=== PATIENT | female | born 1970 | race Caucasian/White ===

== ENCOUNTER → 2018-01-24 13:27 | Outpatient (CLI) | payer OTHER, SELFPAY ==
--- NOTE | 2018-01-24 13:28 | STE_ITS ---
Reason For Study: Atrial Fibrillaton/Atrial Flutter Stress Results Protocol: [facility] Protocol Maximum Predicted HR: 171 bpm Target HR: 145 bpm% Max imum Predicted HR: 96 % DurationHeart Rate Stage (mm:ss) (bpm) BPCom ment Baseline 65 90/62 No Chest Pain [facility] Protocol Stage I 3:00 98 102/62No Chest Pain [facility] Protocol Stage II 3:00 11 8 110/68No Chest Pain [facility] Protocol Stage III 3:00 14 6 128/60No Chest Pain [facility] Protocol Stage IV 3:00 16 2 132/64No Chest Pain [facility] Protocol Stage V 0:15 16 4 / No Chest Pain Recovery 85 104/60 No Chest Pain Stress Duration: 12:15 mm:ss Maximum Stress HR: 164 bpmME TS: 14 Baseline Echocardiogram Findings Stress Echo Wall motion Data Resting WMIntermediate WMStress WM Resting Wall Motion Wall Motion Stress No regional wall motion No regional wall motion abnormalities noted. abnormalities noted. Ejection Fraction 60 %. Ejection Fraction 70 %. Stress Results Normal blood pressure response to exercise. Exercise was stopped due to fatigue. EKG Data Baseline ECG demonstrates normal sinus rhythm with a rate of 63 beats per minute. Normal intervals are noted. The resting blood pressure was 90/60. The patient exercised according to the regular Cl[facility]ton protocol for a total duration of 12 minutes and 15sec. The maximum heart rate attained was 164 beats per minute. This was 95% of maximum predicted heart rate. The patient exercised into stage 5 of the Clifton protocol. During stress, there were no ST or T wave changes noted to suggest ischemia. At peak exercise, upsloping ST changes only were noted, which did not meet the criteria for ischemia. The peak blood pressure was 132/64. No arrhythmias noted. No clinical angina was noted. Interpretation Summary Normal resting LV systolic function. Nonstenotic valves. With stress, the LV size decreased and all segments augmented normally. The LVEF increased from 60% to 70%. Negative for ischemia at 95% of MPHR and at 14.3 METS. Normal stress echo at high workload Ordering Physician: Oswald Duff Referring Physician: Oswald Duff Performed By: Justina Alvarez, REMIGIO, RVT
== END ==
PROVIDERS: Family Provider Family Medicine; PCP Family Medicine; Visit Provider Internal Medicine Cardiovascular Disease
DX: I48.3 Typical atrial flutter (principal)
CPT/HCPCS: 93017; 93350

== ENCOUNTER → 2018-09-12 06:22 | Outpatient (CLI) | payer OTHER, SELFPAY ==
[2018-01-06 14:58] VITALS: BMI 21.9
[2018-09-12 08:35] LABS: ALB/GLOB Ratio 0.9 RATIO (0.9-2.4); AST(SGOT) 14 U/L (15-37); Alanine Aminotransfer ALT/SGPT 16 U/L (13-56); Albumin, Serum 3.3 g/dL (3.2-5.0); Alkaline Phosphatase 52 U/L (45-117); Anion Gap 10 (5-15); BUN 16 mg/dL (7-18); BUN/Creat Ratio 20.4 RATIO (10-20); Chloride 106 mmol/L (98-107); Cholesterol 187 mg/dL (200); Creatinine, Serum 0.78 mg/dL (0.55-1.02); EST Glomerular Filtration Rate 82 mL/min (>60); Est Glom Filt Rate - Afr Amer 100 mL/min (>60); Globulin 3.6 g/dL (2.2-4.2); Glucose 82 mg/dL (74-106); High Density Lipoprotein 47 mg/dL; Potassium 3.4 mmol/L (3.5-5.1); Protein, Total 6.9 g/dL (6.4-8.2); Sodium Level 141 mmol/L (136-145); Thyroid Stim Hormone (TSH) 3.45 uIU/mL (0.358-3.74); Triglycerides 167 mg/dL; Very Low Density Lipoprotein 33 mg/dL (5-40)
--- OUTSIDE RECORDS SUMMARY | 2018-11-05 03:54 | XMS RPT_ITS ---
:1970 Author Organization OHIP Support Name Relationship Address Phone AULHO Unavailable [address] + [facility] [address] MARSHA, JAVIER Unavailable [address] + [place] [phone] AULHO Unavailable [address] + [place] [address] MARSHA, JAVIER Unavailable [address] + [place] [phone] AULHO Unavailable [address] + [place] [address] MARSHA, JAVIER Unavailable [address] + [place] [address] AULHO Unavailable [address] + [place] [address] MARSHA, JAVIER Unavailable [address] + [place] [address] AULHO Unavailable [address] + [place] [address] MARSHA, JAVIER Unavailable [address] + [place] [address] AULHO Unavailable [address] + [place] [address] RICHARDNER, JAVIER Unavailable [address] + [place] [address] AULHO Unavailable [address] + [place] [address] RICHARDNER, JAVIER Unavailable [address] + [place] [address] AULHO Unavailable [address] + [place] [address] MARSHA, JAVIER Unavailable [address] + [place] [address] AULHO Unavailable [address] + [facility] [address] MARSHA JAVIER Unavailable [address] + [place] [address] Care Team Providers Name Role Phone Virginia Gaitan Attending Unavailable Jolliff, Monet Referring Unavailable Marcanthony, Virginia Attending Unavailable Jolliff, Monet Primary Care Unavailable Marcanthony, Virginia Referring Unavailable Omega, Oswald Attending Unavailable Jolliff, Monet Referring Unavailable Omega, Oswald Attending Unavailable Jolliff, Monet Referring Unavailable Omega, Saint Stephens Attending Unavailable Jolliff, Monet Referring Unavailable Jolliff, Monet Primary Care Unavailable Hendrickson, Ilda Attending Unavailable Omega, Oswald Attending Unavailable Jolliff, Monet Primary Care Unavailable Omega, [place] Stephens Referring Unavailable Omega, Oswald Attending Unavailable Gutierrez, Ab Attending Unavailable Gutierrez, Ab Referring Unavailable Jolliff, Monet Primary Care Unavailable PROBLEMS PROBLEMS DATE TYPE CONDITION / CODE ATTENDING STATUS SOURCE 09/27/2018 Unknown Z12.4 - Encounter Noah Gaitan for screening for [facility] / Repository Z12.4(ICD-10) 09/26/2018 Unknown Z01.419 - Encounter Noah Gaitan for gynecological [facility] (general) (routine) Repository without abnormal findings / Z01.419(ICD-10) 01/24/2018 Unknown I48.3 - Typical Omega, Oswald Active [facility] atrial flutter / Community I48.3(ICD-10) Hospital Repository PROCEDURES PROCEDURES No Procedure Records FoundRESULTS RESULTS 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 [place] [address] OFFICE VISIT Date of Service: 09/26/18 MR#: [id number] Acct: [id number] Name: POP LARSON Rep #: [id number] : 1970 Provider: Virginia Gaitan MD Age/Sex: 48/F Location: [facility] [place] [facility] Status: Signed Intake Vital Signs09/26/18 Height 5 ft 6 in 09/26/18 Weight: 143 lb 09/26/18 Body Mass Index (BMI) 23.1 09/26/18 Blood Pressure 96/62 Intake Visit Reasons: ANNUAL Chief Complaint: est annual [employer] Required: No Is patient in pain?: Yes Allergies Penicillins Adverse Reaction (Severe, Verified 09/26/18 14:08) Swelling Medications flecainide 50 mg tablet 50 mg PO BID PRN tab 01/04/18 [History Confirmed 09/26/18] metoprolol tartrate 25 mg tablet 25 mg PO QDAY tab 01/04/18 [History Confirmed 09/26/18] meloxicam 15 mg tablet 15 mg PO QDAY 01/06/18 [History Confirmed 01/06/18] norethindrone 1 mg-ethinyl estradiol 10 mcg (24)-iron 10 mcg(2) tablet 1 tab PO QDAY 01/06/18 [History Confirmed 09/26/18] Is last menstrual period known: Yes Last Menstral Period: 09/15/18 Post menopausal: No Patient : No : No [facility] Medical History Paroxysmal atrial fibrillation (Chronic) Atrial flutter (Chronic) Abnormal electrocardiogram during exercise stress test (Chronic) History of abnormal cervical Pap smear (Acute) History of vertigo (Acute) Surgical History H/O cardiac radiofrequency ablation (Chronic) H/O LEEP (Acute) History of mandibular surgery (Acute) History of tonsillectomy (Acute) Family History Father Hypertension Cancer Hyperlipidemia Social History Smoking Status: Unknown if ever smoked alcohol intake: current details: social substance use type: does not use caffeine: Yes what type of physical activity do you participate in: walking seatbelt use: always do you feel safe at home: Yes additional social history: [employer] Patient works at [employer] Pregancy History 2 Elective abortions Hx Para 1 Spontaneous abortions Past Pregnancies Del. DatName GA/WeeksOutcome Route [facility] Yasmin Del Rio LgAnestheJaniyael LocaProviderFOB e ht en ia tn Unknown [address] Corrine green th - ful n l term HPI ANNUAL: Details: POP BOGNER is a 48 year old who presents for annual exam. some intermittent low stabbing pain. Last PAP: 2017 nl History of abnormal PAP: 2016 leep Last mammogram: ordered History of abnormal mammogram: Colon cancer screening: gen surgery Other preventative health care screenings: pcp dr pearson Female Reproductive History Last Menstral Period: 09/15/18 Cycle Length: 21-35 Bleeding Duration: 4 Questions: Metorrhagia: No, Sexually active: Yes, Dyspareunia: No, PCB: No Menopausal Symptoms: No hot flashes, No night sweats, No weight change, No mood changes, No difficulty concentrating, No sleep problems, No change in libido ROS Const Constitutional: Denies night sweats Cardio Card: Denies chest pain Resp Resp: Denies dyspnea or cough GI GI: Reports as per HPI; denies bloating, abdominal pain, constipation, vomiting or nausea : Denies hot flashes or nipple discharge Skin Skin/Breast: Denies breast pain, breast skin changes, nipple discharge, breast lump or changing lesions Psych Psych: Denies difficulty concentrating or change in sex drive Exam Const General: cooperative, healthy appearing, comfortable, no acute distress, well developed, well groomed HENSC Head: normal to inspection, normocephalic Ears: hearing grossly normal bilaterally, external ears normal Nose: external nose normal Face and sinus: normal facial exam Neck Neck: normal visual inspection, full ROM, no lymphadenopathy Thyroid: thyroid normal Chest Chest palpation AND inspection: normal inspection of the chest Breast inspection: normal inspection of the breasts, normal inspection of the axillae Breast palpation: normal palpation of the breasts, normal palpation of the axillae, no axillary lymphadenopathy Resp Effort AND Inspection: normal respiratory effort GI Inspection: normal to inspection, non-distended Palpation: no guarding, soft, no hepatosplenomegaly General: bladder normal to palpation External Female Exam: normal external appearance, normal appearance of the urethra, no lesions Urethra: normal appearance of the urethra, normal palpation Speculum Exam - Vagina: normal appearance of the vagina, normal vaginal discharge Speculum Exam - Cervix: normal appearance of the cervix, no cervical discharge, no lesions, nontender Bimanual Exam- Vagina AND Uterus: No cervical tenderness, normal bimanual exam, uterine size normal, bladder normal to palpation, uterine mobility normal, uterine consistency normal, uterus non-tender, no cervical motion tenderness Bimanual Exam- Adnexa, other: normal adnexae, no adnexal masses, adnexae non-tender Skin General: no rashes or lesions noted Neuro General: alert, moves all extremities, no focal motor deficits Extrem General: no pedal edema, normal to inspection Psych Appearance: grossly normal Mental Status: mental status grossly normal Affect: normal affect Speech and Movement: speech and movement normal Attitude: cooperative Assessment AND Plan Problems 1. Encounter for gynecological examination without abnormal finding Z01.419 Plan Cervical cancer screening: pap hpv Breast cancer screening: mamm other health maintenance examination reviewed and orders placed if needed. Encouraged maintenance of a healthy weight and active lifestyle and handout given. Annual exam handout including recommendations for good health guidelines, Calcium/vitamin D recommendations, and basic screening information given. Problem list up to date, see problem list details for any additional plan information. Follow up in one year for annual health maintenance exam or sooner if needed. Coding Level of Care Code Off vis,est,prev 40-64yrs Diagnoses Encounter for gynecological examination without abnormal finding Z01.419 Gynecological examination findings: abnormal findings ABSENT 09/26/18 1506 <Electronically signed by Virginia Gaitan MD> Date Virginia Gaitan MD Cosigner Signature: Date (if applicable) CC: COMPREHENSIVE METABOLIC Collected: 09/12/2018 Status: F Source: [place] PROFIL 6:30 AM [facility] REPOSITORY TYPE CODE TESTS RESULT OUT OF RANGE REFERENCE UNITS LAB L501.0100 74-106 mg/dL Normal GLU 82 Result Comment: Please note revised GLUCOSE reference range effective 2017. LAB L501.1000 7-18 mg/dL Normal BUN 16 LAB L501.1100 0.55-1.02 mg/dL Normal CREAT,SERUM 0.78 Result Comment: The validity of the calculated GFR AND GFRAA in patients over 70 years has not been determined. Clinical correlation is essential. LAB L501.1110 >60 mL/min Normal EST GFR 82 Result Comment: Non- GFR Calc LAB L501.1115 >60 mL/min Normal EST GFR - AA 100 Result Comment: GFR Calc LAB L501.1300 10-20 RATIO High BUN/CRE 20.4 LAB L501.1500 6.4-8.2 g/dL T Normal PROT 6.9 LAB L501.1800 3.2-5.0 g/dL Normal ALB 3.3 LAB L501.1950 2.2-4.2 g/dL Normal GLOB 3.6 LAB L501.2000 0.9-2.4 RATIO Normal A/G 0.9 LAB L501.2200 8.5-10.1 mg/dL Low CA 8.0 LAB L501.4100 15-37 U/L Low AST 14 LAB L501.4305 45-117 U/L Normal ALK P 52 LAB L501.4405 13-56 U/L Normal ALT 16 LAB L501.4600 0.20-1.00 mg/dL T Normal BILI 0.40 LAB L501.5300 136-145 mmol/L NA Normal 141 LAB L501.5600 3.5-5.1 mmol/L Low K 3.4 LAB L501.5900 98-107 mmol/L CL Normal 106 LAB L501.6100 21.0-32.0 mmol/L Normal CO2 25.0 LAB L501.6200 5-15 Normal GAP 10 Performed By: #### L500.4050, L500.4100, L501.9520 #### [facility] [address] [place], [place], [address] LIPID PROFILE Collected: 09/12/2018 Status: F Source: [place] 6:30 AM [facility] REPOSITORY TYPE CODE TESTS RESULT OUT OF RANGE REFERENCE UNITS LAB L501.4900 200 mg/dL Normal CHOL 187 Result Comment: <200 mg/dL Desirable 200-240 mg/dL Borderline >240 mg/dL High Risk LAB L501.5000 mg/dL Normal TRIG 167 Result Comment: The drugs N-Acetylcysteine and Metamizole may falsely depress this assay. Serum Triglycerides Reference Interval Normal <150 mg/dL Borderline high 150 - 199 mg/dL High 200 - 499 mg/dL Very High > or = 500 mg/dL LAB L501.6400 mg/dL Normal HDL 47 Result Comment: The drugs N-Acetylcysteine and Metamizole may falsely depress this assay. Reference Range HDL <40 mg/dL Low HDL Cholesterol HDL >or= 60 mg/dL High HDL Cholesterol LAB L501.6500 0-130 mg/dL Normal LDL 107 LAB L501.6600 5-40 mg/dL Normal VLDL 33 Performed By: #### L500.4050, L500.4100, L501.9520 #### [facility] [address] [place], [address] THYROID STIM HORMONE Collected: 09/12/2018 Status: F Source: SELL[place] (TSH) 6:30 AM [facility] REPOSITORY TYPE CODE TESTS RESULT OUT OF RANGE REFERENCE UNITS LAB L501.9520 0.358-3.74 uIU/mL Normal TSH 3.45 Performed By: #### L500.4050, L500.4100, L501.9520 #### [facility] [address] [place], [address] STRESS TEST ECHO W/O Observed: 01/24/2018 Status: F Source: [place] CONTRAST 4:06 PM [facility] REPOSITORY [facility] [address] [place] [address] Stress Test Echo w/o Contrast MR#: [id number] Acct: [id number] Name: POP LARSON Rep #: [id number] : 1970 47 From: Oswald Duff MD Primary Care: Monet Stephenson MD Status: REG CLI Ordering Dr: Oswald Duff MD Sex: F C Reason For Study: Atrial Fibrillaton/Atrial Flutter Stress Results Protocol: Clifton Protocol Maximum Predicted HR: 171 bpm Target HR: 145 bpm% Max imum Predicted HR: 96 % DurationHeart Rate Stage (mm:ss) (bpm) BPCom ment Baseline 65 90/62 No Chest Pain Clifton Protocol Stage I 3:00 98 102/62No Chest Pain Clifton Protocol Stage II 3:00 11 8 110/68No Chest Pain Clifton Protocol Stage III 3:00 14 6 128/60No Chest Pain Clifton Protocol Stage IV 3:00 16 2 132/64No Chest Pain Clifton Protocol Stage V 0:15 16 4 / No Chest Pain Recovery 85 104/60 No Chest Pain Stress Duration: 12:15 mm:ss Maximum Stress HR: 164 bpmME TS: 14 Baseline Echocardiogram Findings Stress Echo Wall motion Data Resting WMIntermediate WMStress WM Resting Wall Motion Wall Motion Stress No regional wall motion No regional wall motion abnormalities noted. abnormalities noted. Ejection Fraction 60 %. Ejection Fraction 70 %. Stress Results Normal blood pressure response to exercise. Exercise was stopped due to fatigue. EKG Data Baseline ECG demonstrates normal sinus rhythm with a rate of 63 beats per minute. Normal intervals are noted. The resting blood pressure was 90/60. The patient exercised according to the regular Clifton protocol for a total duration of 12 minutes and 15sec. The maximum heart rate attained was 164 beats per minute. This was 95% of maximum predicted heart rate. The patient exercised into stage 5 of the Clifton protocol. During stress, there were no ST or T wave changes noted to suggest ischemia. At peak exercise, upsloping ST changes only were noted, which did not meet the criteria for ischemia. The peak blood pressure was 132/64. No arrhythmias noted. No clinical angina was noted. Interpretation Summary Normal resting LV systolic function. Nonstenotic valves. With stress, the LV size decreased and all segments augmented normally. The LVEF increased from 60% to 70%. Negative for ischemia at 95% of MPHR and at 14.3 METS. Normal stress echo at high workload Ordering Physician: Oswald Duff Referring Physician: Oswald Duff Performed By: Justina Alvarez, RDCS, RVT 01/24/18 1606 Date Oswald Duff MD CC: Monet Stephenson MD; Oswald Duff MD Date Dictated: 01/24/18 1349 Date Transcribed: 01/24/18 1606 Eyelet Maker: Signed CARDIOLOGY VISIT Observed: 01/06/2018 Status: F Source: SELLS REPORT 3:24 PM [facility] REPOSITORY [facility] [address] [place], [place] [address] [place] [address] OFFICE VISIT Date of Service: 01/06/18 MR#: [id number] Acct: [id number] Name: POP LARSON Rep #: [id number] : 1970 Provider: Oswald Duff MD Age/Sex: 47/F Location: [facility] Status: Signed HPI HPI Chief Complaint: Follow up Details: POP LARSON, is a 47 F who presents to the office today for a follow-up visit. As you know she has a history of palpitations with atrial flutter status post ablation. She says that she has been doing much better since she changed jobs she is in a less stressful situation. She continues to take her beta-petra and her flecainide on an as-needed basis. She has had few episodes of the above she has had no sustained palpitations no dizziness no diaphoresis no near syncope or syncope. Her blood pressure appears to be under good control and she has been compliant with her medications her physical exam today demonstrates clear lung sanches regular rate and rhythm and no pedal edema. Intake Vital Signs01/06/18 Height 5 ft 7 in 01/06/18 Weight: 140 lb 01/06/18 Body Mass Index (BMI) 21.9 01/06/18 Blood Pressure 102/60 Intake Visit Reasons: 6 M FU (we moved from ) Allergies Penicillins Adverse Reaction (Severe, Verified 01/06/18 14:59) Swelling Medications flecainide 50 mg tablet 50 mg PO BID PRN tab 01/04/18 [History Confirmed 01/04/18] metoprolol tartrate 25 mg tablet 25 mg PO QDAY tab 01/04/18 [History Confirmed 01/04/18] meloxicam 15 mg tablet 15 mg PO QDAY 01/06/18 [History Confirmed 01/06/18] norethindrone 1 mg-ethinyl estradiol 10 mcg (24)-iron 10 mcg(2) tablet 1 tab PO QDAY 01/06/18 [History Confirmed 01/06/18] [facility] Medical History Paroxysmal atrial fibrillation (Chronic) Atrial flutter (Chronic) Abnormal electrocardiogram during exercise stress test (Chronic) Surgical History H/O cardiac radiofrequency ablation (Chronic) Family History Father Hypertension Social History Smoking Status: Unknown if ever smoked alcohol intake: never ROS Const Const: Negative for fatigue, weakness, weight gain, weight loss, frequent falls or excessive sweating Eyes Eyes: Negative for change in vision, blurry vision or transient loss of vision ENT ENT: Negative for dizziness or balance problems Cardio Chest Pain: No Palpitations: Yes Edema: None Muscle aches with walking: None Additional Details: Patient reports that back in October she had a menstrual cycle which caused her to go in and out of afib. Patient reports that she started a new job last August and is noting x1 episode of Afib a month instead of weekly. Resp Respiratory: Negative for SOB with activity or SOB at rest GI GI: Negative vomiting or vomiting blood/hematemesis : Negative for hematuria Musc Musc: Positive for muscle aches/ myalgia (Lt knee pain); negative for balance problems, muscle weakness or joint pain Skin Skin: Negative non-healing lesions or rash Neuro Neuro: Negative for weakness, blurry vision, dizziness, lightheadedness, frequent falls or orthostatic symptoms Feliz Hematologic/Lymphatic: Negative for easy bleeding Endo Endo: Negative for fatigue or excessive sweating Psych Psych: Negative for anxiety or depression Allergy Allergy/Immunology: Negative for hives, Negative for rash Cardiology Exam Const Appearance: cooperative, healthy appearing, well developed, well groomed and no acute distress Nutritional Appearance: well nourished and average body habitus Orientation: alert, awake and oriented x3 Head Head: normal to inspection, normocephalic and atraumatic Ears: hearing grossly normal bilaterally and external ears normal Nose: external nose normal, nasal mucous membranes and turbinates normal, nares normal, septum normal, no nasal discharge Face and Sinus: face symmetric Mouth: oral mucosae normal, tongue normal, oropharynx normal and moist mucous membranes Teeth and gingiva: dentition normal Throat: posterior oropharynx normal, tonsils normal and uvula midline Eyes General: appearance normal, both eyes and all related structures Eyelids: eyelids normal Conjunctivae: conjunctivae normal Pupils: PERRL, normal by confrontation and accommodation normal EOM: EOM intact bilaterally Neck Neck: normal visual inspection, trachea midline and no JVD JVD: +5 Carotids: normal carotid upstroke and bounding pulses Chest Chest inspection: normal inspection of the chest, symmetric chest movement and normal respiratory effort Auscultation: Bilateral: Clear to Auscultation Cardio Palpation: normal PMI Rate: regular rate Rhythm: regular rhythm Heart sounds: S1 normal, S2 normal and normal, physiologic split S2; negative rub, gallop or murmur GI GI: normal to inspection, soft, no hepatosplenomegaly and bowel sounds present Neuro General: alert, awake, oriented x3, no focal sensory deficit, gait normal and moves all extremities Skin Skin: no rashes or lesions noted Extremities Pulses: Normal: Right Femoral Pulse, Left Femoral Pulse, Right Dorsalis Pedis Pulse, Left Dorsalis Pedis Pulse, Right Posterior Tibial Pulse, Left Posterior Tibial Pulse, Right Radial Pulse, Left Radial Pulse Lower Extremity Edema: None: Bilateral Musculoskel Musculoskeletal: No joint tenderness Psych Psychological: normal affect Assessment AND Plan 1. Typical atrial flutter I48.3 Plan She continues to do well with his current management approach as you know she does have preserved left ventricular systolic function she is well tuned to having these palpitations and at this time I would recommend that we continue to follow her closely without making any changes. You do remember we had suggested that this year we should perform a stress test to exclude any conduction system abnormalities. I will communicate the results of the above with you when it is performed. 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) Coding Level of Care Code Off vis,est,level 3 Diagnoses Typical atrial flutter I48.3 Atrial flutter type: typical Coding Level of Care Code Off vis,est,level 3 Diagnoses Typical atrial flutter I48.3 Atrial flutter type: typical 01/06/18 1524 <Electronically signed by Oswald Duff MD> Date Oswald Duff MD Cosigner Signature: Date (if applicable) CC: Monet Stephenson MD ALLERGIES ALLERGIES DATE TYPE / CODE NAME / CODE REACTION SEVERITY SOURCE 09/26/2018 Drug Penicillins/ Swelling [facility] Allergy/4160 [id number]( Hospital [address](SNOMED XNORM) Repository CT) ENCOUNTERS ENCOUNTERS ADMIT/DISCHARGE ACCOUNT ADMITTING ENCOUNTER LOCATION SOURCE NUMBER CLASS 09/26/2018 [id number] Ambulatory [facility] [facility] [facility] ing:[facility] Repository 09/26/2018/ [id number] Ambulatory BMSBuilding:B [place] 8 2 [facility] Repository 09/12/2018 [id number] Ambulatory [place] [facility] ing:LAB Repository 01/24/2018 [id number] Ambulatory [place] [facility] [facility] ing:[facility] Repository 01/24/2018 [id number] Ambulatory BMSBuilding:W [facility] 2 [facility] Repository 01/06/2018 [id number] Ambulatory BMSBuilding:B [place] 3 [facility] Repository 01/06/2018/ [id number] Ambulatory BMSBuilding:B [place] 8 4 [facility] Repository 01/06/2018 [id number] Ambulatory BMSBuilding:B [place] 4 [facility] Repository 12/09/2017 [id number] Ambulatory BMSBuilding:B [place] 3 [facility] Repository PAYERS PAYERS ENCOUNTER GUARANTOR PAYER SUBSCRIBER SOURCE 09/26/2018 JAVIER Ryan Primary JAVIER [id number] Insurance:[facility] [id number] Number: Repository [address]Xcs: (750) [id number] [phone] (HP) Date:5834-19-30UZ [address] [address]PW: 09/26/2018 Secondary NOT GIVENUNK [place] Insurance:SELF PAY [facility] Number: Effective Repository Date:2018-09-26 09/26/2018 JAVIER Ryan Primary JAVIER Ryan [place] [id number] Insurance:MEDICAL BOGNERDOB: [facility] [id number] Number: Repository [address]Ezk: 330 [id number] [phone] (HP) Date:5502-86-20MW [address] [address]IH: 09/26/2018 Secondary NOT GIVENUNK [place] Insurance:SELF PAY [facility] Number: Effective Repository Date:2018-09-26 09/12/2018 JAVIER Ryan Primary JAVIER Ryan [place] [id number] Insurance:MEDICAL BOGNERDOB: [facility] [id number], [place] Number: Repository [address]Pds: 330 [id number] [phone] (HP) Date:3296-15-84RK [address] [address]CN: 09/12/2018 Secondary NOT GIVENUNK [place] Insurance:SELF PAY [facility] Number: Effective Repository Date:2018-09-12 01/24/2018 JAVIER Ryan Primary JAVIER Ryan [place] [id number] Insurance:MEDICAL BOGNERDOB: [facility] [id number], [place] Number: Repository [address]Zhu: 330 [id number] [phone] (HP) Date:1592-22-78QF [address] [address]JF: 01/24/2018 Secondary POP K [place] Insurance:[facility] P[facility] BOGNERDOB: [facility] Number: [id number] Hospital [id number] Repository Date:2018-01-06 01/24/2018 Tertiary NOT GIVENUNK [place] Insurance:SELF PAY [facility] Number: Effective Repository Date:2018-01-06 01/24/2018 JAVIER Ryan Primary JAVIER Ryan [place] [id number] Insurance:MEDICAL BOGNERDOB: [facility] [id number], [place] Number: Repository [address]Ehs: 330 [id number] [phone] (HP) Date:4979-01-30ST [address] [place] [address] [id number]: 01/24/2018 Secondary NOT GIVENUNK [place] Insurance:SELF PAY [facility] Number: Effective Repository Date:2018-01-24 01/06/2018 JAVIER M Primary NOT GIVENUNK [place] [id number] Insurance:SELF PAY [place], [place] Number: Effective Repository [id number]: 330) Date:2017-11-26 [phone] (HP) 01/06/2018 JAVIER Ryan Primary JAVIER Ryan [place] [id number] Insurance:MEDICAL BOGNERDOB: [facility] [id number] Repository [id number]: 330 [id number] [phone] (HP) Date:8596-06-92EM [address] [place] [address]PL: 01/06/2018 Secondary NOT GIVENUNK [place] Insurance:SELF PAY [facility] Number: Effective Repository Date:2018-01-03 01/06/2018 JAVIER Ryan Primary NOT GIVENUNK [place] [id number] Insurance:SELF [place] Number: Effective Repository [id number]: ([phone]) Date:2018-01-06 [phone] (HP) 12/09/2017 JAVIER M Primary NOT GIVENUNK [place] [id number] Insurance:SELF [place] Number: Effective Repository [id number]: (330) Date:2017-09-17 [phone] ()
== END ==
PROVIDERS: Family Provider Family Medicine; PCP Family Medicine; Referring Provider Nurse Practitioner Family; Visit Provider Nurse Practitioner Family
DX: Z00.00 Encounter for general adult medical examination without abnormal findings (principal)
CPT/HCPCS: 36415; 80053; 80061; 84443

== ENCOUNTER → 2018-09-26 20:45 | Outpatient (CLI) | payer OTHER, SELFPAY ==
[2018-09-26 14:07] VITALS: BMI 23.1
[2018-09-29 15:19] LABS: HPV APTIMA, High Risk Negative (Negative)
--- OUTSIDE RECORDS SUMMARY | 2018-12-29 10:25 | XMS RPT_ITS ---
:1970 Author Organization OHIP Support Name Relationship Address Phone AULHO Unavailable [address] + [place] [address] MARSHA, JAVIER Unavailable [address] + [place] [address] AULHO Unavailable [address] + [place] [address] MARSHA, JAVIER Unavailable [address] + [place] [address] AULHO Unavailable [address] + [place] [address] MARSHA, JAVIER Unavailable [address] + [place] [address] AULHO Unavailable [address] + [place] [address] MARSHA, JAVIER Unavailable [address] + [place] [address] AULHO Unavailable [address] + [place] [address] MARSHA, JAVIER Unavailable [address] + [place] [address] AULHO Unavailable [address] + [place] [address] MARSHA, JAVIER Unavailable [address] + [place] [address] AULHO Unavailable [address] + [place] [address] RICHARDNER, JAVIER Unavailable [address] + [place] [address] AULHO Unavailable [address] + [place] [address] MARSHA, JAVIER Unavailable [address] + [place] [address] AULHO Unavailable [address] + [place] [address] MARSHA JAVIER Unavailable [address] + [place] [address] Care Team Providers Name Role Phone Virginia Gaitan Attending Unavailable Jolliff, Monet Referring Unavailable Marcanthony, Virginia Attending Unavailable Jolliff, Monet Primary Care Unavailable Marcanthony, Virginia Referring Unavailable Omega, [place] Attending Unavailable Jolliff, Monet Referring Unavailable Omega, Oswald Attending Unavailable Jolliff, Monet Referring Unavailable Omega, Oswald Attending Unavailable Jolliff, Monet Referring Unavailable Jolliff, Monet Primary Care Unavailable Hendrickson, Ilda Attending Unavailable Omega, [place] Attending Unavailable Jolliff, Monet Primary Care Unavailable Omega, Oswald Referring Unavailable Omega, Oswald Attending Unavailable Gutierrez, Ab Attending Unavailable Gutierrez, Ab Referring Unavailable Jolliff, Monet Primary Care Unavailable PROBLEMS PROBLEMS DATE TYPE CONDITION / CODE ATTENDING STATUS SOURCE 09/27/2018 Unknown Z12.4 - Encounter Noah Gaitan for screening for [facility] malignant neoplasm [facility] of cervix / Repository Z12.4(ICD-10) 09/26/2018 Unknown Z01.419 - Encounter Noah Gaitan for gynecological [facility] (general) (routine) Repository without abnormal findings / Z01.419(ICD-10) 01/24/2018 Unknown I48.3 - Typical Omega, [place] Active [place] atrial flutter / Community I48.3(ICD-10) Hospital Repository PROCEDURES PROCEDURES No Procedure Records FoundRESULTS RESULTS FIELD TEST ENGINEER OFFICE VISIT Observed: 09/26/2018 Status: F Source: [place] REPORT 3:06 PM [facility] H[facility] REPOSITORY [facility] [address] [place] [address] OFFICE VISIT Date of Service: 09/26/18 MR#: [id number] Acct: [id number] Name: POP LARSON Rep #: [id number] : 1970 Provider: Virginia Gaitan MD Age/Sex: 48/F Location[place] [facility] Status: Signed Intake Vital Signs09/26/18 Height 5 ft 6 in 09/26/18 Weight: 143 lb 09/26/18 Body Mass Index (BMI) 23.1 09/26/18 Blood Pressure 96/62 Intake Visit Reasons: ANNUAL Chief Complaint: est annual News Librarian Required: No Is patient in pain?: Yes [...] menopausal: No Patient : No : No [facility] Medical History Paroxysmal atrial fibrillation (Chronic) Atrial [...] safe at home: Yes additional social history: [employer] Patient works at [employer] Pregancy History 2 Elective abortions Hx Para 1 Spontaneous abortions Past Pregnancies Del. DatName GA/WeeksOutcome Route [facility] Yasmin Del Rio LgAnestheJaniyael LocaProviderFOB e ht [...] no acute distress, well developed, well groomed HENNH Head: normal to inspection, normocephalic Ears: hearing [...] MD Cosigner Signature: Date (if applicable) CC: PAP IG HPV APTIMA Collected: 09/26/2018 Status: F Source: [place] 16/18,45 3:00 PM [facility] REPOSITORY Order Comment: CYTOLOGY INFORMATION: - CLINICAL INFORMATION: ANNUAL - DATE LMP/MENOPAUSE: - COLLECTION VIAL: Thin Prep Vial - RESEARCH AND DEVELOPMENT ENGINEER SOURCE: CERVICAL - COLLECTION TECHNIQUE: CX BROOM ONLY Specimen Comment: [id number] Specimen Comment: Source.............Cervix Specimen Comment: No. of containers..01 ThinPrep Vial TYPE CODE TESTS RESULT OUT OF RANGE REFERENCE UNITS LAB L7400.0800 . Normal DIAGN Comment Result Comment: NEGATIVE FOR INTRAEPITHELIAL LESION AND MALIGNANCY. LAB L7400.0900 . Normal ADEQ Comment Result Comment: Satisfactory for evaluation. Endocervical and/or squamous metaplastic cells (endocervical component) are present. LAB L7400.1400 . Normal PERFORM Comment Result Comment: Talia Weston, Patient Financial Rep (ASCP) LAB L7400.2575 . Normal TEST METHOD Comment Result Comment: This liquid based ThinPrep(R) pap test was screened with the use of an image guided system. LAB L7400.2600 . Normal . COMM LAB L7400.2700 . Normal PAPSMR Comment Result Comment: The Pap smear is a screening test designed to aid in the detection of premalignant and malignant conditions of the uterine cervix. It is not a diagnostic procedure and should not be used as the sole means of detecting cervical cancer. Both false-positive and false-negative reports do occur. LAB L7400.2760 Negative Normal HPV APTIMA, Negative HR Result Comment: This test detects fourteen high-risk HPV types (16/18/31/33/35/39/45/ 51/52/56/58/59/66/68) without differentiation. Performed at: - [facility] [id number] Male Model: Sil Carrasco MD, Phone: [phone] Performed at: = - [facility] [id number] Male Model: Sil Carrasco MD, Phone: [phone] Performed By: #### L7400.0280 #### [facility] (refer to report for specific site) refer to report for address and phone number COMPREHENSIVE METABOLIC Collected: 09/12/2018 Status: F Source: [place] PROFIL 6:30 AM [facility] REPOSITORY TYPE CODE TESTS RESULT OUT [...] Performed By: #### L500.4050, L500.4100, L501.9520 #### [facility] [address] [place], [address] LIPID PROFILE Collected: 09/12/2018 Status: F Source: [place] 6:30 AM [facility] REPOSITORY TYPE CODE TESTS RESULT OUT [...] Performed By: #### L500.4050, L500.4100, L501.9520 #### [facility] [address] [place], [address] THYROID STIM HORMONE Collected: 09/12/2018 Status: F Source: [place] (TSH) 6:30 AM [facility] REPOSITORY TYPE CODE TESTS RESULT OUT OF RANGE REFERENCE UNITS LAB L501.9520 0.358-3.74 uIU/mL Normal TSH 3.45 Performed By: #### L500.4050, L500.4100, L501.9520 #### [facility] [address] [place], [address] STRESS TEST ECHO W/O Observed: 01/24/2018 Status: F Source: [place] CONTRAST 4:06 PM [facility] REPOSITORY [facility] [address] [place] [address] Stress Test Echo w/o Contrast MR#: [id number] Acct: [id number] Name: POP LARSON Rep #: [id number] : 1970 47 From: Oswald Duff MD [...] Dictated: 01/24/18 1349 Date Transcribed: 01/24/18 1606 Glazing Machine Operator: Signed CARDIOLOGY VISIT Observed: 01/06/2018 Status: F Source: [place] REPORT 3:24 PM [facility] REPOSITORY [facility] 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 Allergy/4160 [id number]([facility] [address]97(SNOMED XNORM) Repository CT) ENCOUNTERS ENCOUNTERS ADMIT/DISCHARGE ACCOUNT ADMITTING ENCOUNTER LOCATION SOURCE NUMBER CLASS 09/26/2018 [id number] Ambulatory [place] 5 [facility] ing:[facility] Repository 09/26/2018/ [id number] Ambulatory BMSBuilding:B [place] 8 2 [facility] Repository 09/12/2018 [id number] Ambulatory [place] 9 [facility] ing:LAB Repository 01/24/2018 [id number] Ambulatory [place] 4 [facility] ing:[facility] Repository 01/24/2018 [id number] Ambulatory BMSBuilding:W [place] 2 [facility] Repository 01/06/2018 [id number] Ambulatory BMSBuilding:B [place] [address] [facility] Repository 01/06/2018/ [id number] Ambulatory BMSBuilding:B [place] [facility] [address] [facility] Repository 01/06/2018 [id number] Ambulatory BMSBuilding:B [place] [address] [facility] Repository 12/09/2017 [id number] Ambulatory BMSBuilding:B [place] [address] [facility] Repository PAYERS PAYERS ENCOUNTER GUARANTOR PAYER SUBSCRIBER SOURCE 09/26/2018 JAVIER Ryan Primary JAVIER Salgado [id number] Insurance:MEDICAL BOGNERDOB: [facility] [id number] [place] Number: Repository [id number]: 330 [id number] [phone] (HP) Date:1135-57-50AC [address] [address]SA: 09/26/2018 Secondary NOT GIVENUNK [place] Insurance:SELF PAY [facility] Number: Effective Repository Date:2018-09-26 09/26/2018 JAVIER Ryan Primary JAVIER Ryan [place] [id number] Insurance:MEDICAL BOGNERDOB: [facility] [place] Number: Repository [id number]: 330 [id number] [phone] (HP) Date:6022-16-72AJ [address] [address]SO: 09/26/2018 Secondary NOT GIVENUNK [place] Insurance:SELF PAY [facility] Number: Effective Repository Date:2018-09-26 09/12/2018 JAVIER M Primary JAVIER M [place] [id number] Insurance:MEDICAL BOGNERDOB: [facility] [place]20[place] Number: Repository [address]Eoe: 330 [id number] [phone] (HP) Date:6195-73-72MD [address] [address]NS: 09/12/2018 Secondary NOT GIVENUNK [place] Insurance:SELF PAY [facility] Number: Effective Repository Date:2018-09-12 01/24/2018 JAVIER M Primary JAVIER M [place] [id number] Insurance:MEDICAL BOGNERDOB: [facility] 8682[place] Number: Repository [id number]: 330 [id number] [phone] (HP) Date:4792-00-58UU [address] [address]ZB: 01/24/2018 Secondary POP K [place] Insurance:[facility] PACKAGE BOGNERDOB: [facility] Number: [id number] [id number] Repository Date:2018-01-06 01/24/2018 Tertiary NOT GIVENUNK [place] Insurance:SELF PAY [facility] Number: Effective Repository Date:2018-01-06 01/24/2018 JAVIER M Primary JAVIER Ryan [place] [id number] Insurance:MEDICAL BOGNERDOB: [facility] 5064[place] Number: Repository [id number]: 330 [id number] [phone] (HP) Date:5309-16-25XB [address] [place] [address]VP: 01/24/2018 Secondary NOT GIVENUNK [place] Insurance:SELF PAY [facility] Number: Effective Repository Date:2018-01-24 01/06/2018 JAVIER Ryan Primary NOT GIVENUNK [place] [id number] Insurance:SELF [place] Number: Effective Repository [id number]: 330) Date:2017-11-26 [phone] (HP) 01/06/2018 JAVIER Ryan Primary JAVIER Ryan [place] [id number] Insurance:MEDICAL BOGNERDOB: [facility] [place]17[place] Number: Repository [id number]: 330 [id number] [phone] (HP) Date:0873-18-46CN [address] [place] [address]DS: 01/06/2018 Secondary NOT GIVENUNK [place] Insurance:SELF PAY [facility] Number: Effective Repository Date:2018-01-03 01/06/2018 JAVIER M Primary NOT GIVENUNK [place] [id number] Insurance:[place] Number: Effective Repository [id number]: (330) Date:2018-01-06 [phone] (HP) 12/09/2017 JAVIER M Primary NOT GIVENUNK [place] [id number] Insurance[place]LF [place] Number: Effective Repository [id number]: (330) Date:2017-09-17 [phone] ()
== END ==
PROVIDERS: Family Provider Family Medicine; PCP Family Medicine; Referring Provider Obstetrics & Gynecology; Visit Provider Obstetrics & Gynecology
DX: Z12.4 Encounter for screening for malignant neoplasm of cervix (principal)
CPT/HCPCS: 87624; 88175; G0145

== ENCOUNTER → 2021-02-06 11:52 | Outpatient (CLI) | payer OTHER, SELFPAY ==
[2021-02-06 11:00] VITALS: BMI 22.8
[2021-02-06 12:38] LABS: Estradiol 11.1 pg/mL; Follicle Stimulating Hormone 8.1 mIU/mL
[2021-02-12 16:24] LABS: HPV APTIMA, High Risk Negative (Negative)
== END ==
PROVIDERS: PCP Family Medicine; Referring Provider Obstetrics & Gynecology; Visit Provider Obstetrics & Gynecology
DX: Z12.4 Encounter for screening for malignant neoplasm of cervix (principal); N95.1 Menopausal and female climacteric states
CPT/HCPCS: 36415; 82670; 83001; 87624; 88175; G0145

== ENCOUNTER → 2021-03-08 10:42 | Outpatient (CLI) | payer OTHER, SELFPAY ==
[2021-03-04 15:45] VITALS: BMI 23.7
[2021-03-08 11:14] LABS: Absolute Lymphocyte Count 1.59 X10^3/uL (0.83-4.51); Absolute Neutrophil Count 4.6 X10^3/uL (2.0-7.7); Basophil# 0.04 X10^3/uL; Basophil% 0.6 % (0-1); Eosinophil# 0.09 X10^3/uL; Eosinophils% 1.3 % (0-5); Hematocrit 40.3 % (37-47); Hemoglobin 13.5 g/dL (12.0-15.0); Lymphocyte # 1.59 X10^3/ul (0.83-4.51); Lymphocyte % 23.7 % (19-41); Mean Corp Hgb Conc 33.5 g/dL (32-36); Mean Corpuscular Hgb 31.6 pg (27.0-32.0); Mean Corpuscular Volume 94.4 fL (81-99); Mean Platelet Vol. 9.8 fl (6.2-12.0); Monocyte# 0.39 X10^3/uL; Monocyte% 5.8 % (0-10); NRBC Flagged by Analyzer 0 % (0-5); Neutrophil # 4.57 X10^3/uL (2.7-7.7); Neutrophil % 68.3 % (47-70); Platelet Count 262 K/mm3 (150-450); RBC Distribution Width CV 11.3 % (11.6-14.6); Red Blood Count 4.27 M/mm3 (4.2-5.4); White Blood Count 6.7 K/mm3 (4.4-11.0)
[2021-03-08 12:03] LABS: AST(SGOT) 28 U/L (15-37); Alanine Aminotransfer ALT/SGPT 35 U/L (13-56); Albumin, Serum 4.1 g/dL (3.2-5.0); Alkaline Phosphatase 91 U/L (45-117); Anion Gap 7 (5-15); BUN 17 mg/dL (7-18); BUN/Creat Ratio 15.7 RATIO (10-20); Bilirubin, Direct 0.11 mg/dL (0.00-0.30); Calcium,Total 9.1 mg/dL (8.5-10.1); Chloride 107 mmol/L (98-107); Cholesterol 270 mg/dL (200); Creatinine, Serum 1.08 mg/dL (0.55-1.02); EST Glomerular Filtration Rate 57 mL/min (>60); Est Glom Filt Rate - Afr Amer 68 mL/min (>60); Globulin 3.7 g/dL (2.2-4.2); Glucose 92 mg/dL (74-106); High Density Lipoprotein 63 mg/dL; Potassium 3.9 mmol/L (3.5-5.1); Protein, Total 7.8 g/dL (6.4-8.2); Sodium Level 141 mmol/L (136-145); Thyroid Stim Hormone (TSH) 2.31 uIU/mL (0.358-3.74); Triglycerides 125 mg/dL; Very Low Density Lipoprotein 25 mg/dL (5-40)
== END ==
PROVIDERS: PCP Family Medicine; Referring Provider Internal Medicine Cardiovascular Disease; Visit Provider Internal Medicine Cardiovascular Disease
DX: I48.92 Unspecified atrial flutter (principal)
CPT/HCPCS: 36415; 80048; 80061; 80076; 84443; 85025

== ENCOUNTER → 2021-07-08 07:35 | Outpatient (CLI) | payer OTHER, SELFPAY ==
[2021-07-08 08:44] LABS: AST(SGOT) 19 U/L (15-37); Alanine Aminotransfer ALT/SGPT 22 U/L (13-56); Albumin, Serum 3.8 g/dL (3.2-5.0); Alkaline Phosphatase 72 U/L (45-117); Bilirubin, Direct 0.18 mg/dL (0.00-0.30); Cholesterol 210 mg/dL (200); Globulin 3.8 g/dL (2.2-4.2); High Density Lipoprotein 61 mg/dL; Protein, Total 7.6 g/dL (6.4-8.2); Triglycerides 117 mg/dL; Very Low Density Lipoprotein 23 mg/dL (5-40)
[2021-07-08 08:51] LABS: Estradiol 254.5 pg/mL; Follicle Stimulating Hormone 11.9 mIU/mL
[2021-07-08 12:32] LABS: HIV - WCH Non-Reactive (Nonreactive); Syphilis Antibodies Non-reactive
[2021-07-08 13:12] LABS: Chlamydia Trachomatis by PCR Negative (Negative); Neisserai gonorrhoeae by PCR Negative (Negative); Probe Check PASS; Sample Adequacy Control PASS; Specimen Processing Control PASS
[2021-07-09 19:07] LABS: HCV Quant. RNA PCR HCV Not Detected IU/mL (.); HEPATITIS B SURFACE AG Negative (Negative); Hepatitis A IgM Antibody Negative (Negative); Hepatitis B Core AB IgM Negative (Negative)
[2021-07-09 22:51] LABS: HSV 2 IgG < 0.91 index (0.00-0.90); Hep C Antibodies <0.1 s/co ratio (0.0-0.9)
== END ==
PROVIDERS: Obstetrics & Gynecology; PCP Family Medicine; Referring Provider Internal Medicine Cardiovascular Disease; Visit Provider Internal Medicine Cardiovascular Disease
DX: E78.00 Pure hypercholesterolemia, unspecified (principal); N95.1 Menopausal and female climacteric states; Z11.3 Encounter for screening for infections with a predominantly sexual mode of transmission
CPT/HCPCS: 36415; 80061; 80074; 80076; 82670; 83001; 86695; 86696; 86703; 86780; 87491; 87522; 87591

== ENCOUNTER → 2023-03-15 | Outpatient (CLI) | payer OTHER, SELFPAY ==
[2023-03-15 10:24] LABS: AST(SGOT) 22 U/L (15-37); Alanine Aminotransfer ALT/SGPT 28 U/L (13-56); Alkaline Phosphatase 94 U/L (45-117); Bilirubin, Direct 0.13 mg/dL (0.00-0.30); Cholesterol 233 mg/dL (200); Globulin 3.4 g/dL (2.2-4.2); High Density Lipoprotein 54 mg/dL; Protein, Total 7.4 g/dL (6.4-8.2); Triglycerides 220 mg/dL; Very Low Density Lipoprotein 44 mg/dL (5-40)
== END | disposition home or self-care (01) ==
LOC: LAB 08:52
PROVIDERS: PCP Family Medicine; Referring Provider Internal Medicine Cardiovascular Disease; Visit Provider Internal Medicine Cardiovascular Disease
DX: E78.00 Pure hypercholesterolemia, unspecified (principal); I48.92 Unspecified atrial flutter
CPT/HCPCS: 36415; 80061; 80076

== ENCOUNTER → 2024-08-10 | Outpatient (CLI) | payer OTHER, SELFPAY ==
[2024-08-10 15:59] LABS: Anion Gap 3 (5-15); BUN 20 mg/dL (7-18); BUN/Creat Ratio 23.3 RATIO (10-20); Calcium,Total 9.2 mg/dL (8.5-10.1); Chloride 108 mmol/L (98-107); Cholesterol 253 mg/dL (200); Creatinine, Serum 0.86 mg/dL (0.55-1.02); EST Glomerular Filtration Rate 73 mL/min (>60); Est Glom Filt Rate - Afr Amer 88 mL/min (>60); Glucose 87 mg/dL (74-106); High Density Lipoprotein 59 mg/dL; Magnesium 2.2 mg/dL (1.6-2.6); Potassium 4.1 mmol/L (3.5-5.1); Sodium Level 140 mmol/L (136-145); Triglycerides 174 mg/dL; Very Low Density Lipoprotein 35 mg/dL (5-40)
== END | disposition home or self-care (01) ==
LOC: LAB 13:54
PROVIDERS: PCP Family Medicine; Referring Provider Internal Medicine Cardiovascular Disease; Visit Provider Internal Medicine Cardiovascular Disease
DX: E78.00 Pure hypercholesterolemia, unspecified (principal); I48.92 Unspecified atrial flutter
CPT/HCPCS: 36415; 80048; 80061; 83735

== ENCOUNTER 2024-09-28 09:38 | Outpatient (CLI) | payer OTHER, SELFPAY ==
--- NOTE | 2024-09-28 09:44 | STE_ITS ---
Reason For Study: Atrial Flutter Stress Results Stress Echocardiogram without contrast, [place] 164 Protocol: Protocol Maximum Predicted HR: bpm Target % Maximum Predicted HR: 139 bpm HR: 91 % Heart Stage Duration Rate BP Comment (mm:ss) (bpm) Baseline 60 104/64Patient denies chest pain Stage 1 3:00 88 110/60Patient denies chest pain Stage 2 3:00 100 120/68Patient denies chest pain Stage 3 3:00 120 144/72Patient complains of chest pressure midsternal rated 2/10 Stage 4 3:00 142 154/78patient complains of chest pressure midsternal 3/10 Patient complains of chest pressure 3/10 midsternal and shortness Stage 5 0:30 150 / of breath Recovery 73 116/70Patient states that chest pressure and shortness of breath are gone Stress Duration: 12:30 mm:ss Maximum Stress HR: 150 bpm Baseline Echocardiogram Findings Stress Echo Wall motion Data Resting WM Intermediate WM Stress WM ECHO/Stress Test Echo w/o Contrast Interpretation Summary Stress echo. 54-year-old lady with a history of atrial tachyarrhythmia. Resting EKG demonstrates normal sinus rhythm with a rate of 62 bpm resting bloo d pressure is 104/64 mmHg. The patient exercised according to regular [place] protocol for a total dur ation of 12-1/2 minutes. The maximal heart rate attained was 150 bpm which was 91% of max impac anna heart rate the maximum workload was 15.3 metabolic equivalents. At rest there were no ST or T wave changes noted stress ischemia at peak exercise there were nonspecific 2.5 mm of downsloping S T depression noted in the inferolateral leads suggestive but not diagnostic of ischemia. Patient also experienced mild chest discomfort at peak exercise. The peak blood pressure is 156/76 with a rat e-pressure product of 22,000. Stress echocardiogram. The resting echocardiographic images demonstrated preser yusuf ejection fraction of 60% with no wall motion abnormalities present. At peak exercise there was th ickening of all wright and reduction of the ventricular cavity size with peaking of ejection fraction of 75% no wall motion abnormalities were noted to suggest ischemia. Conclusion: Exercise stress echo with no definitive EKG changes of ischemia at a high workl oad. No arrhythmias noted. Resting and stress cardiographic images demonstrate no ischemia. Ordering Physician: Oswald Duff Referring Physician: Oswald Duff Performed By: Caitlin Saenz RCS
== END 2024-09-28 23:59 | disposition home or self-care (01) ==
LOC: CVS 09:43
PROVIDERS: PCP Family Medicine; Referring Provider Internal Medicine Cardiovascular Disease; Visit Provider Internal Medicine Cardiovascular Disease
DX: I48.92 Unspecified atrial flutter (principal)
CPT/HCPCS: 93017; 93350

== ENCOUNTER → 2024-10-05 | Outpatient (CLI) | payer SELFPAY ==
--- NOTE | 2024-10-05 13:53 | CT_ITS ---
STUDY: CT CHEST WITHOUT CONTRAST REASON FOR EXAM: Female, 54 years old. HYPERCHOLESTEREMIA RADIATION DOSAGE (If Supplied By Facility): CTDIvol = ( 12.19 ) mGy, DLP = ( 219.42 ) mGycm TECHNIQUE: Transaxial imaging was performed without the administration of intravenous contrast material. Cardiac over read examination. Individualized dose optimization techniques were used for this CT. COMPARISON: No relevant priors. FINDINGS: CHEST The lungs are normal. There is no demonstrated pleural abnormality. Normal heart and pericardium. No coronary artery calcification is seen. Small mediastinal lymph nodes. Normal hilar regions. Normal unenhanced pulmonary arteries. Normal aorta arch and descending thoracic aorta. Normal osseous structures. Small hiatal hernia. CT/Limited Chest CT Cardiac Only IMPRESSION: No significant coronary artery calcification is seen. Electronically Signed: Karl Au MD at 14:36 EST ,
--- NOTE | 2024-10-05 15:32 | CA.SCORE ---
Calcium Scoring Date of Study:: 10/05/24 Indications Indications: Risk stratification Coronary Calcium Scoring: High-resolution Computed Tomographic imaging of the chest was performed on [10/05/24 ], with particular attention paid to the coronary arteries. Images from the examination were analyzed for the presence and extent of coronary artery calcification , using coronary calcium quantification software. The patient tolerated the procedure well and there were no complications. The results of the coronary calcification analysis are provided below. Findings Coronary Artery Left Main (LM): 0 Left Anterior Descending (LAD): 0 Left Circumflex (LCX): 0 Right Coronary Artery (RCA): 4 Total Agatston Score: 4 Percentile Rankin%-75% Calcium Scoring Interpretation: Different methods to categorize the overall amount of coronary plaque. Overall amount CAC SIS Visual of coronary plaque P1 Mild -100 <2 1-2 vessels with mild amount of plaque P2 Moderate 101-300 3-4 1-2 vessels with moderate amount, 3 vessels with mild amount of plaque P3 Severe 301-999 5-7 3 vessels with moderate amount, 1 vessel with severe amount of plaque P4 Extensive >1000 >8 2-3 vessels with severe amount of plaque Conclusion: Minimal atherosclerotic plaquing
== END | disposition home or self-care (01) ==
LOC: CT 13:52
PROVIDERS: PCP Family Medicine; Referring Provider Internal Medicine Cardiovascular Disease; Visit Provider Internal Medicine Cardiovascular Disease
DX: E78.00 Pure hypercholesterolemia, unspecified (principal); I48.92 Unspecified atrial flutter
CPT/HCPCS: 75571; 76380

== ENCOUNTER → 2025-07-03 | Outpatient (CLI) | payer OTHER, SELFPAY ==
[2025-07-10 11:08] LABS: HPV APTIMA, High Risk Negative (Negative)
== END | disposition home or self-care (01) ==
LOC: LABSPEC 16:23
PROVIDERS: PCP Family Medicine; Visit Provider Obstetrics & Gynecology
DX: Z12.4 Encounter for screening for malignant neoplasm of cervix (principal)
CPT/HCPCS: 87624; 88175; G0145